=== PATIENT | female | born 1975 | race Caucasian/White ===

== ENCOUNTER 2025-03-30 16:12 | Emergency (ER) | payer OTHER ==
[~2025-03-30] VITALS: Ht 170.2 cm; Wt 77.0 kg
[2025-03-30 16:28] VITALS: O2SAT 99
[2025-03-30] MEDS: ACETAMINOPHEN 325MG TABLET PO ONE (21:58)
[2025-03-30] MEDS: TETANUS, DIPHTHERIA, PERTUSSIS VAC/PF 0.5ML (>10YR OLD) IM ONE (21:59)
[2025-03-30] MEDS ORDERED: NAPR-1176 MT (22:06)
[2025-03-30 22:30] VITALS: BP 174/78; PULSE 43; RESP 20; TEMP 36.7; O2SAT 100
== END 2025-03-30 22:34 | disposition home or self-care (01) ==
LOC: ER 16:12
DX: S01.412A Laceration without foreign body of left cheek and temporomandibular area, initial encounter (principal); S09.90XA Unspecified injury of head, initial encounter; I10 Essential (primary) hypertension; F31.9 Bipolar disorder, unspecified; Y04.0XXA Assault by unarmed brawl or fight, initial encounter; Y93.89 Activity, other specified; Y92.89 Other specified places as the place of occurrence of the external cause; Y99.8 Other external cause status
CPT/HCPCS: 12013; 70486; 90471; 90715; 99285